=== PATIENT | male | born 1990 | race Hispanic/Latino ===

== ENCOUNTER 2025-06-15 11:13 | Emergency (ER) | payer OTHER ==
[~2025-06-15] VITALS: Ht 160 cm; Wt 54.2 kg
[2025-06-15] MEDS ORDERED: HYDR25OIN TOP (11:25)
[2025-06-15 15:02] VITALS: BP 127/81; TEMP 97.3; O2SAT 100
[2025-06-15] MEDS ORDERED: IBUP600T42 PO (15:32)
[2025-06-15] MEDS ORDERED: VALA1TAB5 PO (15:32)
== END 2025-06-15 15:37 | disposition home or self-care (01) ==
LOC: M ED 11:13
DX: B02.8 Zoster with other complications (principal); Z79.1 Long term (current) use of non-steroidal anti-inflammatories (NSAID); Z79.899 Other long term (current) drug therapy